=== PATIENT | female | born 1995 | race Caucasian/White ===

== ENCOUNTER → 2018-05-08 08:28 | Outpatient (CLI) | payer BC | END | disposition home or self-care (01) | LOC: D.RAD 08:28 | DX: R12 Heartburn (principal); R11.0 Nausea; R11.10 Vomiting, unspecified; R19.7 Diarrhea, unspecified; R63.4 Abnormal weight loss ==

== ENCOUNTER → 2018-05-15 08:35 | Outpatient (CLI) | payer BC | END | disposition home or self-care (01) | LOC: D.LAB 07:45 → D.RAD 08:00 → D.LAB 08:35 | DX: R12 Heartburn (principal); R11.2 Nausea with vomiting, unspecified; R19.7 Diarrhea, unspecified; R63.4 Abnormal weight loss ==